=== PATIENT | male | born 1940 | race Caucasian/White ===

== ENCOUNTER 2019-01-01 11:08 | Inpatient (IN) | payer MEDICARE ==
[~2019-01-01 11:08] MED LIST: ISOVUE-370 76%-LOCM 1 ML ONE
[2019-01-01 11:46] LABS: #Eosinphils 0.1 thou/uL (0.0-0.7); #Monocytes 0.5 thou/uL (0.11-0.59); #Neutrophils 3.8 thou/uL (1.40-6.50); %Basophils 0.1 % (0.0-1.0); %Eosinophils 1.9 % (0.0-10.0); %Lymphocytes 18.4 % (21.0-51.0); %Monocytes 9.6 % (0.0-10.0); %Neutrophils 70.1 % (42.0-75.0); Mean Corpuscular HGB CONC 32.3 g/dL (32.0-36.0); Mean Corpuscular Volume 96.1 fL (78.0-98.0); Mean Platelet Volume 7.7 fL (7.4-10.4); Platelet Count 190 thou/uL (130-400); RBC Distribution Width 13.4 % (11.5-14.5); Red Blood Cell (RBC) Count 4.52 mill/uL (4.70-6.10); White Blood Cell (WBC) Count 5.4 thou/uL (4.8-10.8)
[2019-01-01 11:53] LABS: INR-International Normal Ratio 1.2; PTT 38.2 SEC (22.9-36.1)
--- NOTE | 2019-01-01 11:54 | CT ---
CT HEAD WITHOUT CONTRAST: Date: 01/01/19 Multiple axial tomograms obtained through the head without IV enhancement. INDICATION: Stroke protocol. Expressive aphasia and right arm pain. No comparison. FINDINGS: Ventricles have normal size and position. No evidence of intracranial mass or hemorrhage. No evidence of acute infarct identified. Sinuses and mastoids are clear. IMPRESSION: No acute process. Findings relayed to emergency physician at 1121 hours. CODE CR. POS: CRYSTAL
[2019-01-01 12:06] LABS: ALT (SGPT) 14 U/L (8-55); AST (SGOT) 22 U/L (5-34); Albumin 3.5 g/dL (3.4-4.8); Alkaline Phosphatase 59 U/L (40-150); Anion Gap 12 mmol/L (10-20); BUN (Urea Nitrogen) 24 mg/dL (8.4-25.7); Bilirubin, Total 0.7 mg/dL (0.2-1.2); Calc. Creatinine Clearance 0 mL/min (70-130); Calcium 8.6 mg/dL (7.8-10.44); Carbon Dioxide 19 mmol/L (23-31); Chloride 106 mmol/L (98-107); Estimated GFR-MDRD 89; Globulin 2.2 g/dL (2.4-3.5); Glucose 116 mg/dL (83-110); Potassium 4.4 mmol/L (3.5-5.1); Protein, Total 5.7 g/dL (5.8-8.1); Sodium 133 mmol/L (136-145)
--- NOTE | 2019-01-01 12:23 | CT ---
CT ANGIO HEAD: CT ANGIO NECK: CT HEAD WITH CONTRAST: HISTORY: Aphasia. Stroke alert. Right arm pain. TECHNIQUE: A CTA head and neck is performed in the axial plane. Three-dimensional reformatted images are submit giuseppe for interpretation. FINDINGS: HEAD CT WITH CONTRAST: Malacic change involving the right occipital parietal region. Otherwise, cor tical arias white matter differential appears to be preserved. There are chronic small vessel ischemi c changes of the white matter. No hydrocephalus. The calvarium is intact. Adequate aeration of the sinuses and mastoid air cells. Bilateral ocular lenses are appropriately located. Both globes are intact. Retrobulbar fat is prese rved. Symmetric attenuation of the optic nerve and ocular rectus muscle. Limited evaluation of the oral cavity due to dental amalgam artifact. Midline fatty [place] of the [place] is preserved. The epiglottis has a normal caliber. Pre-epiglottic fat is preserved. Symmetric attenuation of the parotid and submandibular glands. The sternocleidomastoid muscle is unr emarkable. No evidence of lymphadenopathy by size criteria. Cervical spine vertebral body height is maintained. There is no fracture. Multilevel degenerative c hange with loss of disk space height and osteophyte formation. Grossly, the central spinal canal is patent. There are varying degrees of foraminal stenosis secondary to degenerative change. Chronic change in the lung apices. The upper mediastinum is unremarkable. CT ANGIOGRAM: The visualized aorta has a normal caliber. There is atherosclerosis without evidence of dissection or aneurysm. RIGHT CAROTID: The right carotid artery origin has appropriate enhancement and luminal diameter. Th e common carotid artery, carotid bifurcation, and internal carotid artery have appropriate enhancemen t and luminal diameter. There is atherosclerosis with a combination of calcified and noncalcified pl aque in the right carotid bifurcation and proximal internal carotid artery. No significant stenosis based upon NASCET criteria. LEFT CAROTID: The left carotid artery origin has appropriate enhancement and luminal diameter. The left common carotid artery has appropriate enhancement and luminal diameter. There is calcified plaq ue with short-segment moderate (50%) stenosis of the proximal left internal carotid artery. Evaluati on is limited due to extensive calcified plaque and motion degradation. The mid to distal left inter nal carotid artery has appropriate enhancement and luminal diameter. Both subclavian arteries are patent. There is lack of contrast opacifying the right vertebral artery throughout its course in the neck with the exception of a small amount of contrast at the C2-C3 disk space level. The left vertebral artery appears to be patent throughout its course in the neck. CT ANGIOGRAM HEAD: There is calcified plaque in both cavernous carotid segments with probable short- segment moderate stenosis involving the distal right cavernous segment and paraclinoid segment. Ther e is mild narrowing of the left paraclinoid segment and distal cavernous segment. 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 Both A2 segments are patent and symmetric. The right A2 segment is supplied by a patent a nterior communicating artery. Bilateral M1 segments and proximal MCA branches are symmetric and butler nt. POSTERIOR CIRCULATION: There is some opacification of the right vertebral artery, likely due to sangeeta ateral flow. Both vertebral arteries supply a normal appearing basilar artery. The left and right P 1 segments have appropriate enhancement and luminal diameter. Both PICA origins appear to be grossly unremarkable. IMPRESSION: 1. Moderate short-segment stenosis of the proximal left internal carotid artery, based upon NASCET c marryeria. Evaluation is limited by motion and significant calcified disease. 2. Significant atherosclerotic disease involving both cavernous segments and paraclinoid segments, r ight greater than left. 3. No significant stenosis of the level of the [place]. 4. Lack of enhancement throughout the majority of the right vertebral artery, presumed to be chronic . The results of the study were discussed with Dr. Carlisle on 01/01/2019 at 11:38 a.m. LUIS EDUARDO VIEYRA POS: CRYSTAL
[2019-01-01 13:25] VITALS: BMI 19.8
--- NOTE | 2019-01-01 13:37 | RAD ---
CHEST 1 VIEW: Date: 01/01/19 HISTORY: Aphasia. Right arm pain. Right arm weakness. COMPARISON: None. FINDINGS: Marked cardiomegaly with mild bilateral vascular congestion and minimal increased linear and intersti tial markings. Slight costophrenic angle blunting. No confluent pneumonia. IMPRESSION: Marked cardiomegaly with mild vascular congestion, minimal increased interstitial markings, and possi staci small pleural effusions. Short-term follow-up recommended. POS: TPC
[2019-01-01] MEDS ORDERED: Communication Order-Pharmacy FS SCH (15:52)
[2019-01-01] MEDS ORDERED: niCARdipine HCl 25 MG in Sodium Chloride 0.9% 250 ML 240 ML IVPB PRN (15:52)
[2019-01-01] MEDS ORDERED: Labetalol HCl 100 MG/20 ML VIAL SLOW IVP PRN (15:52)
[2019-01-01] MEDS ORDERED: Ondansetron ODT 4 MG TAB PO PRN (15:52)
[2019-01-01] MEDS ORDERED: Ondansetron PF 4 MG/2 ML Vial IVP PRN (15:52)
[2019-01-01] MEDS ORDERED: Acetaminophen 500 MG TAB PO PRN (15:52)
--- NOTE | 2019-01-01 17:16 | CON ---
DATE OF CONSULTATION: 01/01/2019 REASON FOR CONSULTATION: Mandatory, the patient in CCU. This encompasses 50 minutes time, of that time, greater than 50% was spent with the patient and/or the patient unit in the hospital. 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 He was given tPA in the emergency room. His ability to speak is quite limited right now secondary to the expressive aphasia. He has recovered the rest of his deficits in his extremities. PAST MEDICAL HISTORY: 1. Previous hospitalization in 2017 for new onset congestive heart failure with a left bundle-branch block. He had an EF of 15% to 20% by an echocardiogram done during that hospitalization. Currently, he was advised that he go home with a LifeVest, but he did not do that. 2. Normal cardiac catheterization in 2017. 3. Hypertension. PAST SURGICAL HISTORY: See above. MEDICATIONS: Since last hospital discharge, he was prescribed; 1. Aspirin 325 mg daily. 2. Atorvastatin 40 mg daily. 3. Coreg 12.5 mg b.i.d. 4. Lisinopril 5 mg daily. 5. Nitroglycerin to take sublingually as needed. It is not completely clear what he is taking right now. SOCIAL HISTORY: Nonsmoker. Does not consume alcohol. 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 ALLERGIES: NONE. REVIEW OF SYSTEMS: Cannot be obtained secondary to his expressive aphasia. PHYSICAL EXAMINATION: VITAL SIGNS: Heart rate 88, blood pressure 144/91, O2 saturation 94%, and respiratory rate 30. GENERAL: He is awake and alert, in no distress. NEUROLOGIC: Pupils react. Moves all 4 extremities without difficulty. He cannot talk very clearly. Tongue protrudes midline. HEENT: Otherwise unremarkable. NECK: No JVD. CHEST: Clear to auscultation. CARDIAC: S1 and S2. Regular without murmur. ABDOMEN: Soft, nontender, and nondistended. EXTREMITIES: No clubbing, cyanosis, or edema. IMAGING DATA: Chest x-ray demonstrates cardiomegaly, which is quite profound. Brain CT initially demonstrated no acute process. The angiography of the brain demonstrated stenosis in the left internal carotid artery, it is characterized as moderate. LABORATORY DATA: White blood cell count 5.4, hematocrit 43.4, and platelet count 190. INR 1.2. Sodium 133, potassium 4.4, BUN 24, creatinine 0.8, and glucose 116. ASSESSMENT: 1. Cerebrovascular accident with speech deficit. 2. History of hypertension. PLAN: The patient was given tPA. He will be evaluated by the Neurology Service and the Hospitalist Service. I have reviewed his case and agree with current plan. Pulmonary will follow peripherally until the patient is moved out of the CCU. Job ID: [id number]
--- NOTE | 2019-01-01 18:50 | HP ---
PRIMARY CARE PROVIDER: [facility]. CHIEF COMPLAINT: Facial droop and unable to speak. HISTORY OF PRESENT ILLNESS: This is a 78-year-old male, who presents to [facility] with sudden onset of right facial droop and difficulty with speech. History was obtained after discussions with the patient as well as review of electronic medical record as the patient exhibits expressive aphasia. The patient's symptoms apparently began approximately 9:30 a.m. on 01/01/2019. At which point, the patient called 911 using his own cellphone. The patient noted difficulty using his right upper extremity as it felt paralyzed. 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 The patient had difficulty forming words and noted facial droop and right-sided weakness. The patient states he had a prior history of TIA like symptoms without residual deficit. The patient does admit to taking aspirin regularly for his heart and denied any new medication exposure or toxic ingestions. The patient denies any specific headache, visual disturbance, recent fall, or head injury. Remaining history is obtained after review of electronic medical record due to expressive aphasia and dysarthria. In the emergency room, the patient underwent evaluation including general stroke protocol meeting criteria for tPA administration. The patient received tPA approximately 11:40 a.m. The patient exhibiting improvement and speech forming some words as well as increased movement of his right upper extremity and near resolution of right facial droop. PAST MEDICAL HISTORY: 1. TIA. 2. Coronary artery disease. 3. Hypertension. PAST SURGICAL HISTORY: Status post right knee aspiration. CURRENT MEDICATIONS: Unavailable. The patient unable to provide a list. ALLERGIES: NO KNOWN DRUG ALLERGIES. FAMILY HISTORY: Positive for hypertension. SOCIAL HISTORY: The patient resides in [place], [place]. 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 Denies alcohol, tobacco, or illicit drug use. REVIEW OF SYSTEMS: Unobtainable due to the patient's dysarthria and expressive aphasia. PHYSICAL EXAMINATION: VITAL SIGNS: On admission, blood pressure 140/91, pulse 83, respiratory rate 18, temperature 97.6 degrees Fahrenheit, and O2 saturation 97% on room air. GENERAL APPEARANCE: This is a 78-year-old male, alert, responds in 1 to 2 words with expressive aphasia and dysarthria. HEENT: Pupils are equal, round, reactive to light and accommodation. Extraocular muscles are intact. No scleral icterus. No conjunctival injection. Nares patent. OP is clear. NECK: Supple. No cervical adenopathy. No thyromegaly. No carotid bruits. No JVD appreciated. Cervical spine with full active and passive range of motion. No meningeal signs noted. CHEST: Lungs are clear to auscultation bilaterally. CARDIOVASCULAR: S1 and S2 with 1 to 2/6 systolic ejection murmur in the left axillary region. ABDOMEN: Rounded, soft, nontender, and nondistended. Bowel sounds are positive in all 4 quadrants. There is no hepatosplenomegaly. No abdominal bruits. No rebound or guarding appreciated. EXTREMITIES: Warm and dry with fair turgor. No clubbing, cyanosis, or asymmetric edema appreciated. Pulses palpable distally at the dorsalis pedis, posterior tibial, and popliteal arteries bilaterally. Capillary refill less than 2 seconds. NEUROLOGIC: Mild right facial asymmetry. Expressive aphasia/dysphagia with dysarthria. Right upper extremity weakness on pie filler strength compared to the left upper extremity. Right-hand dominant. Moves all extremities on command. Not observed ambulatory during this exam. PERTINENT LABORATORY DATA AND X-RAY FINDINGS: Sodium 133, potassium 4.4, chloride 106, CO2 of 19, BUN 24, creatinine 0.84, estimated GFR of 89, calcium 8.6. LFTs within normal limits. Troponin I negative x1. CBC within normal limits. PT 15.0, INR 1.2, and PTT 38.2. CT of the brain without contrast dated 01/01/2019, showed no acute intracranial process. CT angiogram of the [place] and head and neck dated 01/01/2019, showed left internal carotid artery calcifications. No significant stenosis of the [place]. Chronic right vertebral artery stenosis. Portable chest x-ray dated 01/01/2019, showed cardiomegaly with mild vascular prominence. EKG dated 01/01/2019, by my interpretation shows sinus mechanism with heart rates in the 80s. Left bundle-branch block pattern noted. Attenuated R-waves noted in the precordial leads. Left axis deviation. ASSESSMENT AND PLAN: 1. Acute ischemic cerebrovascular accident. The patient will be admitted to the Critical Care Unit. Status post tPA in the emergency department. Improvement in dysarthria/aphasia and right upper extremity weakness. We will continue status post tPA protocol. Hold aspirin x24 hours. Check 2D transthoracic echocardiogram in the a.m. Check MRI imaging of the brain. Continue general stroke protocol. 2. Expressive aphasia. Secondarily to #1. We will continue Speech Therapy evaluation and general stroke protocol. Confirm home regimen including aspirin. The patient may benefit from transition to Plavix or Aggrenox. 3. Hyponatremia. Encourage increased oral intake and repeat sodium level in the a.m. 4. Prophylaxis. SCDs while in bed. Pepcid 20 mg p.o. b.i.d. Speech, Occupational and Physical Therapy evaluation. 5. Code status is full. Surrogate medical decision maker is Carole Carney. Job ID: [id number]
[2019-01-01] MEDS: Famotidine 20 MG TAB PO SCH (20:24)
[2019-01-01] MEDS: Atorvastatin Calcium 40 MG TAB PO SCH (20:24)
[2019-01-02] MEDS: Famotidine 20 MG TAB PO SCH ×2 (07:26→20:54)
--- NOTE | 2019-01-02 08:34 | PRG ---
DATE OF SERVICE: 01/02/2019 SUBJECTIVE: The patient has regained his speech since yesterday. The only deficit he has is some sensation problems in his fingertips on the right. OBJECTIVE: VITAL SIGNS: On exam, temperature is 97.5, pulse 69, blood pressure 131/76, and O2 sat 100%. HEENT: Unremarkable. NECK: No JVD. CHEST: Clear. CARDIAC: S1 and S2, regular. ABDOMEN: Soft. EXTREMITIES: No edema. LABORATORY DATA: No labs were obtained today. ASSESSMENT: Status post stroke, requiring tPA. He has recovered his speech deficit. PLAN: He can transfer out to the stroke floor. No further Pulmonary recommendations. We will sign off. Job ID: [id number]
--- NOTE | 2019-01-02 09:33 | MRI ---
MRI BRAIN WITHOUT CONTRAST: HISTORY: A 78-year-old male with a CVA. CORRELATION: CT scan from the previous day. FINDINGS: There is a small area of restricted diffusion in the left MCA territory. The ventricular size is johanny ropriate, and the basilar cisterns are patent. There is gliosis in the right posterior parietal lobe . A few foci of T2 prolongation in the periventricular white matter are consistent with chronic smal l vessel ischemic disease. No midline shift or abnormal extraaxial fluid collections are seen. Ther e is decreased signal on the gradient echo sequences within a portion of the restricted diffusion, co nsistent with hemorrhagic products. IMPRESSION: Small, hemorrhagic, acute left middle cerebral artery infarction. CODE T
--- NOTE | 2019-01-02 09:37 | CT ---
CT BRAIN: 01/02/2019 COMPARISON: 01/01/2019 FINDINGS: Noncontrast enhanced CT images of the brain demonstrate a small area of acute infarction, which has d eveloped in the left posterior frontal lobe. This area was not seen on the previous exam and demonst rates an area of ill-defined hypodensity. There is a tiny area of developed hyperdensity seen, on ax ial image #15, along the medial aspect of this area of infarction. This may represent a tiny area of secondary hemorrhage. Small, old area of gliosis, likely due to incomplete infarction, seen in the left posterior parietal lobe and right lateral parietal regions. IMPRESSION: Developed left middle cerebral artery area of infarction with a subtle area of possible secondary hem orrhage POS: CRYSTAL
[2019-01-02 12:35] LABS: Hemoglobin 14.5 g/dL (14.0-18.0); Mean Corpuscular HGB CONC 32.1 g/dL (32.0-36.0); Mean Corpuscular Hemoglobin 30.7 pg (27.0-31.0); Mean Corpuscular Volume 95.6 fL (78.0-98.0); Mean Platelet Volume 7.7 fL (7.4-10.4); Platelet Count 194 thou/uL (130-400); RBC Distribution Width 13.3 % (11.5-14.5); Red Blood Cell (RBC) Count 4.73 mill/uL (4.70-6.10); White Blood Cell (WBC) Count 5.5 thou/uL (4.8-10.8)
[2019-01-02 12:52] LABS: Anion Gap 14 mmol/L (10-20); BUN (Urea Nitrogen) 23 mg/dL (8.4-25.7); Calc. Creatinine Clearance 70 mL/min (70-130); Calcium 9.1 mg/dL (7.8-10.44); Carbon Dioxide 21 mmol/L (23-31); Cardiac Risk 3.7 (Less than 4.5); Chloride 107 mmol/L (98-107); Cholesterol 157 mg/dl (< 200 Desired); Estimated GFR-MDRD 90; Glucose 114 mg/dL (83-110); HDL Cholesterol 43 mg/dL (>60 Neg Risk); LDL Cholesterol, Calculated 103 mg/dL; Potassium 4.5 mmol/L (3.5-5.1); Sodium 137 mmol/L (136-145); Triglycerides 53 mg/dL (Less than 150)
[2019-01-02 13:14] LABS: MDiff Complete? YES; Neutrophil 65 % (42-75)
[2019-01-02 13:15] LABS: Band 5 % (5-11); Eosinophils 1 % (0-10); Lymphocytes 19 % (21-51); Monocytes 5 % (0-10); RBC Morphology Normal; Reactive Lymphocytes 5 % (0-10)
--- NOTE | 2019-01-02 17:56 | PRG ---
DATE OF SERVICE: 01/02/2019 SUBJECTIVE: The patient reports he is doing substantially better and feels like his symptoms are largely resolved other than he has just a little bit of decreased sensation at his fingertips on his right hand; however, he has normal fine motor skills with that hand. OBJECTIVE: VITAL SIGNS: Temperature 96.8, pulse 78, BP 113/72, O2 saturation 96% on room air. GENERAL APPEARANCE: Age-appropriate male, in no distress. Awake, alert, oriented, pleasant, and cooperative. HEART: Regular rate and rhythm without murmurs, gallops, or rubs. LUNGS: Clear to auscultation bilaterally with good chest wall expansion and air exchange. ABDOMEN: Soft, nontender, and nondistended. Positive bowel sounds. No masses. No organomegaly. EXTREMITIES: Warm and dry with no edema. NEUROLOGICALLY: The patient has generally normal strength in bilateral upper and lower extremities with no significant hypoesthesia. DIAGNOSTIC DATA: MRI shows small hemorrhagic acute left middle MCA infarction with subtle area of possible infarction seen on CT, not on MRI. LABORATORY DATA: White count 5.5, hemoglobin 14.5, platelets 194. Sodium 137, potassium 4.5, chloride 107, CO2 is 21, BUN 23, creatinine 0.83, glucose 114, calcium 9.1, total cholesterol 157, HDL 43, LDL 103, triglycerides 53. IMPRESSION AND PLAN: 1. Acute cerebrovascular accident with symptoms largely improved. Can go to the Stroke unit at any time. Continue with physical therapy. He has a Neurology consult pending. He is on statin and aspirin. 2. Hyponatremia, improved. 3. History of hypertension. Continue home regimen. Job ID: [id number] [facility]
[2019-01-02] MEDS: Atorvastatin Calcium 40 MG TAB PO SCH (20:54)
--- NOTE | 2019-01-02 22:04 | CON ---
DATE OF CONSULTATION: 01/02/2019 CONSULTING PHYSICIAN: Hospitalist Services. IMPRESSION: 1. Resolving left middle cerebral artery stroke, possibly cardioembolic in origin versus thromboembolic. 2. Ejection fraction of 10% to 15%. 3. Aspirin failure. PLAN: I would suggest anticoagulation if Cardiology agrees. HISTORY OF PRESENT ILLNESS: Mr. Lutz is a 78-year-old man who presented with right-sided weakness and some speech difficulties. Initial CT scan was negative for bleed. He was within the window for tPA. He received the medication last night, had followup MRI of the brain today which shows a medium size region in the central parietal area of hypointensity with some punctate hemorrhage. There is no mass effect to it. His symptoms of right-sided weakness have significantly improved. His echocardiogram preliminarily shows a markedly suppressed ejection fraction. His CTA showed a 50% high internal carotid stenosis as well as some patchy narrowing further upstream. He denies any prior history of stroke. He does not smoke. He has not had any recent cardiology followup. PAST MEDICAL HISTORY: Coronary artery disease, hypertension. ALLERGIES: NONE. SOCIAL HISTORY: No tobacco or alcohol. MEDICATIONS: Medication list was reviewed. REVIEW OF SYSTEMS: A 10-system review of systems is otherwise unremarkable. PHYSICAL EXAMINATION: GENERAL: He is a well-nourished elderly man, in no distress. VITAL SIGNS: Blood pressure 113/72, pulse 80, respirations 19, saturations 95%. HEENT: Pupils are equal and reactive. Conjunctivae are clear. Oropharynx is clear. NECK: Supple, no lymphadenopathy. EXTREMITIES: No cyanosis, clubbing, or edema. NEUROLOGIC: He is alert and cooperative. His speech is fluent and clear. Cranial nerve exam did not show any asymmetries. Motor exam shows good special service representative strength bilaterally. Fine motor control is minimally impaired on the right. He has good antigravity strength in the right leg. Sensation is intact. Plantar response is upgoing on the right and downgoing on the left. Gait is not tested at this time. No abnormal movements are seen. LABORATORY DATA: EKG shows normal sinus rhythm. SUMMARY: This is an elderly man with acute stroke with significantly depressed ejection fraction as well as some upstream stenosis in the internal carotid artery. I would suggest anticoagulation. Cardiology input would be beneficial to see if anything can be done to improve his EF. Job ID: [id number]
[2019-01-03] MEDS: Aspirin 325 mg Enteric Coated Tablet PO SCH (09:23)
[2019-01-03] MEDS: Famotidine 20 MG TAB PO SCH ×2 (09:23→21:56)
[2019-01-03] MEDS: Atorvastatin Calcium 40 MG TAB PO SCH (21:56)
[2019-01-03] MEDS: Carvedilol 25 MG TAB PO SCH (21:56)
--- NOTE | 2019-01-04 00:35 | CON ---
DATE OF CONSULTATION: 01/03/2019 REASON FOR CONSULTATION: Congestive heart failure, systolic, chronic, recent stroke. HISTORY OF PRESENT ILLNESS: Mr. Lutz is a 78-year-old gentleman with history of nonischemic cardiomyopathy. The patient presented to the emergency room with acute ischemic stroke as outlined in the chart. CT scan was negative for bleeding. He did receive tPA. Followup MRI of the brain showed medium-sized region in the central parietal area, hypointensity with some punctate hemorrhages, hemorrhages improved. He was found to have nonobstructive carotid arterial disease. PAST MEDICAL HISTORY: The patient does have a history of congestive heart failure with nonischemic cardiomyopathy. He was hospitalized here in 2017. Unfortunately, they have made two different charts with two different medical record numbers. Therefore, these records are not showing up in the current electronic chart, but he underwent cardiac catheterization and was found to have nonobstructive coronary disease best treated medically. Ejection fraction was 20%, nonobstructive coronary disease. He was discharged home on PATSY inhibitors and beta-blockers. Unfortunately, he did not come back for any followup. The patient does not know what medicines he was taking at home. It is listed to take lisinopril and carvedilol, but he is not really clear he has been taking these. SOCIAL HISTORY: The patient says he lives in a very low-fixed income. REVIEW OF SYSTEMS: CONSTITUTIONAL: No significant weight gain or loss. VISION: No changes. HEARING: No changes. PULMONARY: No cough or wheezing. GASTROINTESTINAL: No nausea, vomiting, or diarrhea. SKIN: No rashes. NEUROLOGIC: No unilateral weakness or numbness. PSYCHIATRIC: No unusual depression or anxiety. PHYSICAL EXAMINATION: GENERAL: This is a pleasant, somewhat disheveled-appearing 78-year-old man, in no distress. VITAL SIGNS: His blood pressure is 122/75 and pulse 70. HEENT: Eyes, sclerae are nonicteric. Mouth, mucous membranes are moist. NECK: Supple. No lymphadenopathy. LUNGS: Clear. No wheezing. CARDIAC: Normal S1, normal S2. ABDOMEN: Soft and nontender. EXTREMITIES: No clubbing or cyanosis. No edema. SKIN: Warm and dry. DIAGNOSTIC DATA: Echocardiogram shows severely depressed left ventricular function with an ejection fraction of 15% to 20%. ASSESSMENT: 1. Recent ischemic stroke, treated successfully with tPA, strongly suspect embolic event, most likely from atrial fibrillation. This occurred on aspirin apparently. 2. Nonischemic cardiomyopathy, severe. 3. History of noncompliance. 4. Left bundle-branch block. PLAN: Consideration for biventricular pacemaker, defibrillator will be given. We will discuss with Dr. Chowdhury. They could be monitored then subsequently to see if he is having atrial fibrillation, but I do not think there will be a high chance that he is. Unfortunately, may be difficult to get him on novel oral anticoagulants as he says funds are very limited and he has not been good with followup either. We will have to discuss this to go ahead, also would be a poor candidate for Coumadin in view of noncompliance. Job ID: [id number]
[2019-01-04] MEDS: Carvedilol 25 MG TAB PO SCH (08:17)
[2019-01-04] MEDS: Aspirin 325 mg Enteric Coated Tablet PO SCH (08:19)
[2019-01-04] MEDS: Famotidine 20 MG TAB PO SCH (08:19)
[2019-01-04] MEDS ORDERED: Furosemide 40 MG TAB PO SCH (09:00)
[2019-01-04] MEDS ORDERED: Atorvastatin Calcium 40 MG TAB PO SCH (09:00)
[2019-01-04] MEDS ORDERED: Lisinopril 5 MG TAB PO SCH (09:00)
--- NOTE | 2019-01-04 09:35 | PRG ---
DATE OF SERVICE: 01/04/2019 SUBJECTIVE: The patient's primary concern is that he has chronic back pain. He is having a difficult time getting comfortable. He is not able to really stay in the bed and spends most of his time sitting up. He has specifically stated he did not want any medication for the back pain. OBJECTIVE: VITAL SIGNS: Temperature 98, pulse 73, respirations 18, O2 saturation 99% on room air, BP is 122/75. GENERAL APPEARANCE: Age-appropriate male, in no distress. Then sitting up in chair, pleasant, conversant. HEART: Regular without murmurs. LUNGS: Slightly diminished, but clear bilaterally. ABDOMEN: Soft, nontender, and nondistended. EXTREMITIES: No cyanosis, clubbing, or edema. LABORATORY DATA: Echocardiogram results showed an EF of 15% to 20% and severe dilatation of the left atrium, moderate to severe MR, mild to moderate AR, moderate tricuspid regurgitation, and severely elevated pulmonary artery pressures. IMPRESSION AND PLAN: 1. Acute cerebrovascular accident status post tPA with substantial resolution of his symptoms. He was seen by Neurology, they recommended anticoagulation given his cardiomyopathy. Cardiology consult has been placed. The patient reports that he had a heart attack few years ago, but he is not aware of having significant cardiomyopathy or congestive heart failure in our discussion. He does report that he has had no peripheral edema, but he has had significant dyspnea on exertion, which he related to lung problems rather than heart problems. 2. Cardiomyopathy. Cardiology consult pending. May need anticoagulation. It appears as though he was on a good regimen as an outpatient with Coreg, PATSY inhibitor, and diuretic. We will make sure he is resumed on his usual home medications. 3. Hyponatremia, improved. 4. Chronic back pain. The patient has requested no medication for that. Subsequent to my visit, discussed case with Dr. Queen. The patient certainly would likely benefit from a defibrillator given the chronicity of his cardiomyopathy. He will talk to Dr. Chowdhury. Job ID: [id number]
--- NOTE | 2019-01-04 10:46 | PRG ---
DATE OF SERVICE: 01/04/2019 SUBJECTIVE: Mr. Lutz had a consultation with Dr. Chowdhury yesterday. Mr. Lutz states he was actually not taking the medicines for congestive heart failure. He is only taking furosemide and aspirin. Therefore, he is not a candidate to proceed with defibrillator implantation presently. The patient is to be on the appropriate medicines for 3 months prior to consideration. LifeVest was recommended. The patient refuses, states "if I , I ." The patient has a history of noncompliance with medications unfortunately. OBJECTIVE: VITAL SIGNS: Today's blood pressure 121/72, pulse 66 and regular. LUNGS: Clear. CARDIAC: Normal S1, normal S2. ASSESSMENT: 1. Severe cardiomyopathy. 2. Nonsustained ventricular tachycardia. 3. Left bundle branch block. 4. Stroke, on anti-platelet drugs. I suspect he may have had a cardioembolic event. I believe we have not proven that. PLAN: 1. He is on carvedilol. 2. Lisinopril. 3. Furosemide. 4. He is asked to see us in the office in 2 weeks. The patient has no medication insurance. He says he can "handle the medicine cause." However, the anticoagulant drugs are extremely expensive. It is not clear if he would actually fill these prescriptions. At this time, we have also not proven that he has any type of cardioembolic event. We have asked him to come to see us in the office in couple of weeks. If he is doing well and he has filled the medicines and he knows his medicines, we could consider adding apixaban 5 mg twice a day, but at the present time, I do not know if it is safe to give him anticoagulants as he is very noncompliant with medicine. Prognosis long-term is guarded to poor. He would improve if he got biventricular pacing with defibrillator, but I suspect. The main question is whether he will take his medicines to keep followups. As mentioned, he refuses LifeVest. Also, a LifeVest would monitor to see if he has any atrial arrhythmias, but refuses that. Job ID: [id number]
[2019-01-04 11:25] VITALS: BP 106/62; TEMP 97.4
--- NOTE | 2019-01-05 02:17 | CON ---
DATE OF CONSULTATION: 01/03/2019 HISTORY OF PRESENT ILLNESS: I am seeing Mr. 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 His problems are: 1. Chronic systolic congestive heart failure with nonischemic cardiomyopathy. a. Reduced LVEF of 57% on echo on 01/02/2019 with severe left atrial enlargement , moderate to severe MR, [id number] aortic regurgitation, moderate tricuspid regurgitation, pulmonary hypertension. b. Reduced LVEF at 20% with left heart catheterization showing nonobstructive coronary artery disease on heart catheterization in 2017 followup. 2. Left bundle branch block. 3. Subacute ischemic stroke. 4. Risk factors including hypertension and hyperlipidemia. ALLERGIES: NONE. MEDICATIONS: At home include: 1. Aspirin. 2. Lipitor. 3. Coreg. 4. Lisinopril. 5. Nitroglycerin p.r.n. SUBJECTIVE: Mr. Lutz is here following an acute episode of ischemic stroke with right upper extremity paresis, facial droop, difficult speech. He has similar history in the past. He was evaluated and the tPA was given, his symptoms promptly resolved. The patient was seen in this regard. His repeat cardiac evaluation revealed continued severely reduced LV function. I was consulted by Dr. Queen for future EP management. The patient is doing fair. Denies PND, orthopnea, or lower extremity edema. He has NYHA class 2 functional status according to him. Medication compliance is difficult to elicit. He is somewhat a poor historian. I think fluid overload. There are no angina-like symptoms. No fever, chills, or cough. He does not pass out. Rest of 12-point system otherwise unremarkable. OBJECTIVE DATA: VITAL SIGNS: Blood pressure is 111/68, heart rate 74, respirations 20. The patient is afebrile. PHYSICAL EXAMINATION: GENERAL: He is alert and oriented man, in no apparent distress. NECK: Supple. Jugular veins not distended. CHEST: Coarse without crackles. HEART: Sounds are regular rate and rhythm. No murmur or gallop. ABDOMEN: Benign. Bowel sounds positive. EXTREMITIES: Lower extremities without edema, clubbing, or cyanosis. Pulses are adequate. NEUROLOGIC: The patient is nonfocal. MUSCULOSKELETAL: No joint swelling or deformity. SKIN: Without rash. DATABASE: EKG is reviewed revealing sinus rhythm, marked left bundle branch block with wide QRS. Telemetry strips reveal short nonsustained ventricular tachycardia. LABORATORY DATA: White cell count 5.5, hemaglobin 14. 5, platelet count is 194. Sodium 137, potassium 4.5, BUN is 23, creatinine 0.83. Troponin levels are 0.02. The CAT scan reviewed, shows no acute process initially, but the [place] angio reveals short-segment stenosis in the proximal left internal carotid artery. ASSESSMENT AND PLAN: Mr. Lutz is a pleasant 78-year-old man with history of nonischemic cardiomyopathy, somewhat limited compliance with followup after 2017 , the initial establishment of his disease process. He had limited medication cover and he may have been poorly compliant with his heart failure medications. Now, he is returning with continued severely reduced LV function in episode of stroke, which appears to be ischemic and responded to tPA, likely related to cardiogenic emboli. I discussed the findings with him. He has recent decompensated heart failure, but severely reduced LV function and wide left bundle branch block. LV dyssynchrony is very likely, he likely could benefit from Bi-V pacing. Prophylaxis of arrhythmogenic sudden cardiac is also reasonable. If we able to place him on heart failure therapy, this could be considered in 3 months. LifeVest therapy is a consideration. The patient declines at this point. Acute cerebrovascular accident, again thromboprophylaxis is a potential possibility. With aspirin, possibly the Plavix, he might need to be monitored for recurrence of atrial fibrillation, in which case he will require oral anticoagulant as well. Once ICD implanted, he will be further monitored with LifeVest in the future. I discussed these issues with him. At this point, the patient is eager to leave the hospital and not interested in staying for further evaluation. We will be happy to follow him as an outpatient as well. Job ID: [id number] [facility]
--- NOTE | 2019-01-05 16:38 | EKG ---
Test Reason : ST ELEVATION Blood Pressure : / mmHG Vent. Rate : 081 BPM Atrial Rate : 081 BPM P-R Int : 170 ms QRS Dur : 204 ms QT Int : 494 ms P-R-T Axes : 069 -51 076 degrees QTc Int : 573 ms Normal sinus rhythm Possible Left atrial enlargement Left axis deviation Left Bundle Branch Block Abnormal ECG When compared with ECG of 01-JAN-2019 11:37, (Unconfirmed) No significant change was found Confirmed by DR. Reyna WHITESIDE ([id number]) on 01/05/2019 4:38:02 PM Referred By: Confirmed By:DR. Reyna WHITESIDE
== END 2019-01-04 12:17 | disposition home or self-care (01) | DRG 62 ==
LOC: ERS 11:08 → CCU 12:26 → 2SE 01-02 17:26
PROVIDERS: ADMIT Family Medicine; ATTEND Family Medicine
DX: I63.412 Cerebral infarction due to embolism of left middle cerebral artery (principal); E87.1 Hypo-osmolality and hyponatremia; I50.22 Chronic systolic (congestive) heart failure; I42.8 Other cardiomyopathies; R47.1 Dysarthria and anarthria; R29.810 Facial weakness; I11.0 Hypertensive heart disease with heart failure; E78.5 Hyperlipidemia, unspecified; I25.10 Atherosclerotic heart disease of native coronary artery without angina pectoris; R47.01 Aphasia; I48.91 Unspecified atrial fibrillation; M54.9 Dorsalgia, unspecified; Z79.899 Other long term (current) drug therapy; Z91.14 Patient's other noncompliance with medication regimen; Z79.82 Long term (current) use of aspirin
CPT/HCPCS: 36415; 36416; 70450; 70496; 70498; 70551; 71045; 80048; 80053; 80061; 84484; 85007; 85025; 85027; 85610; 85730; 93005; 93010; 93306; 94640; J2997; J7620; Q9966

== ENCOUNTER 2021-02-26 10:37 | Inpatient (IN) | payer MEDICARE ==
[2021-02-26] MEDS ORDERED: HYDROcodone/Acetaminophen 5/325 mg Tablet ONE (11:30)
[2021-02-26 11:36] LABS: #Monocytes 0.5 thou/uL (0.11-0.59); #Neutrophils 3.1 thou/uL (1.40-6.50); %Basophils 0.9 % (0.0-1.0); %Eosinophils 0.9 % (0.0-10.0); %Lymphocytes 20.9 % (21.0-51.0); %Monocytes 9.8 % (0.0-10.0); %Neutrophils 67.5 % (42.0-75.0); Hemoglobin 11.3 g/dL (14.0-18.0); Mean Corpuscular HGB CONC 32.8 g/dL (32.0-36.0); Mean Corpuscular Hemoglobin 32.8 pg (27.0-31.0); Platelet Count 225 thou/uL (130-400); RBC Distribution Width 15.4 % (11.5-14.5); Red Blood Cell (RBC) Count 3.43 mill/uL (4.70-6.10); White Blood Cell (WBC) Count 4.6 thou/uL (4.8-10.8)
[2021-02-26] MEDS ORDERED: Vancomycin 1 GM/200 ML BAG ONE (11:37)
[2021-02-26] MEDS ORDERED: Cefepime 2 GM VIAL ONE (11:37)
[2021-02-26 12:05] LABS: ALT (SGPT) 26 U/L (8-55); AST (SGOT) 69 U/L (5-34); Albumin 3.9 g/dL (3.4-4.8); Alkaline Phosphatase 66 U/L (40-110); Anion Gap 15 mmol/L (10-20); BUN (Urea Nitrogen) 42 mg/dL (8.4-25.7); Bilirubin, Total 1.1 mg/dL (0.2-1.2); Calc. Creatinine Clearance 0 mL/min (70-130); Calcium 9.4 mg/dL (7.8-10.44); Carbon Dioxide 20 mmol/L (23-31); Chloride 102 mmol/L (98-107); Globulin 2.8 g/dL (2.4-3.5); Glucose 91 mg/dL (83-110); Potassium 4.7 mmol/L (3.5-5.1); Protein, Total 6.7 g/dL (5.8-8.1); Sodium 132 mmol/L (136-145)
[2021-02-26] MEDS ORDERED: Guaifenesin DM 100-10/5 ML UDCUP PO PRN (13:53)
[2021-02-26] MEDS ORDERED: Ondansetron PF 4 MG/2 ML Vial IVP PRN (13:53)
[2021-02-26 16:48] VITALS: BMI 21.6
[2021-02-26] MEDS: Famotidine 20 MG TAB PO SCH (19:55)
[2021-02-26 22:04] LABS: SARS-CoV-2 PCR by NAA Not Detected (NotDetected)
[2021-02-26] MEDS: Cefepime 1 GM in Sodium Chloride 0.9% 100 ML IVPB SCH (23:36)
[2021-02-27 05:20] LABS: Band 8 % (5-11); Eosinophils 2 % (0-10); Hypochromia SLIGHT = 6-15 cells (100X) (0-5/hpf); Lymphocytes 22 % (21-51); MDiff Complete? YES; Mean Corpuscular HGB CONC 33.5 g/dL (32.0-36.0); Mean Corpuscular Hemoglobin 33.4 pg (27.0-31.0); Mean Corpuscular Volume 99.6 fL (78.0-98.0); Mean Platelet Volume 7.1 fL (7.4-10.4); Monocytes 8 % (0-10); Neutrophil 60 % (42-75); Platelet Count 200 thou/uL (130-400); Platelet Morphology Comment Appears Adequate; RBC Distribution Width 15.4 % (11.5-14.5); Red Blood Cell (RBC) Count 3.29 mill/uL (4.70-6.10); White Blood Cell (WBC) Count 3.5 thou/uL (4.8-10.8)
[2021-02-27 05:28] LABS: ALT (SGPT) 27 U/L (8-55); AST (SGOT) 62 U/L (5-34); Albumin 3.7 g/dL (3.4-4.8); Alkaline Phosphatase 62 U/L (40-110); Anion Gap 15 mmol/L (10-20); BUN (Urea Nitrogen) 38 mg/dL (8.4-25.7); Bilirubin, Total 1.2 mg/dL (0.2-1.2); Calc. Creatinine Clearance 38 mL/min (70-130); Calcium 8.8 mg/dL (7.8-10.44); Carbon Dioxide 20 mmol/L (23-31); Chloride 104 mmol/L (98-107); Globulin 2.9 g/dL (2.4-3.5); Glucose 91 mg/dL (83-110); Potassium 4.6 mmol/L (3.5-5.1); Protein, Total 6.6 g/dL (5.8-8.1); Sodium 134 mmol/L (136-145)
[2021-02-27] MEDS: Enoxaparin Sodium 40 MG/0.4 ML SYRINGE SC SCH (08:08)
[2021-02-27] MEDS: Famotidine 20 MG TAB PO SCH (08:09)
[2021-02-27] MEDS: Acetaminophen 325 MG TAB PO PRN ×3 (08:09→22:05)
[2021-02-27] MEDS: Vancomycin 1 GM in Premix Bag 1 BAG IVPB SCH (11:11)
[2021-02-27] MEDS: Cefepime 1 GM in Sodium Chloride 0.9% 100 ML IVPB SCH ×2 (13:32→23:24)
[2021-02-28] MEDS: Acetaminophen 325 MG TAB PO PRN ×2 (04:06→20:59)
[2021-02-28] MEDS: Famotidine 20 MG TAB PO SCH (10:22)
[2021-02-28] MEDS: Vancomycin 1 GM in Premix Bag 1 BAG IVPB SCH ×2 (10:22→12:46)
[2021-02-28] MEDS: Enoxaparin Sodium 40 MG/0.4 ML SYRINGE SC SCH ×2 (10:23→10:25)
[2021-02-28 11:47] LABS: Vancomycin, Trough 8.4 ug/mL
[2021-02-28] MEDS: HYDROcodone/Acetaminophen 5/325 mg Tablet PO PRN (12:38)
[2021-02-28] MEDS: Cefepime 1 GM in Sodium Chloride 0.9% 100 ML IVPB SCH (12:39)
[2021-02-28] MEDS: VANCOMYCIN 1.25 GM/250 ML BAG 1.25 GM in Premix Bag 1 BAG IVPB SCH (13:58)
[2021-02-28] MEDS ORDERED: Sodium Chloride 0.9% 1,000 ML IV SCH (14:15)
[2021-03-01] MEDS: Cefepime 1 GM in Sodium Chloride 0.9% 100 ML IVPB SCH ×3 (00:02→23:55)
[2021-03-01] MEDS: Famotidine 20 MG TAB PO SCH (08:18)
[2021-03-01] MEDS: Enoxaparin Sodium 40 MG/0.4 ML SYRINGE SC SCH (08:18)
[2021-03-01] MEDS: VANCOMYCIN 1.25 GM/250 ML BAG 1.25 GM in Premix Bag 1 BAG IVPB SCH (13:13)
[2021-03-01] MEDS: HYDROcodone/Acetaminophen 5/325 mg Tablet PO PRN (21:42)
[2021-03-02 07:14] LABS: #Basophils 0.1 thou/uL (0.0-0.2); #Lymphocytes 1.1 thou/uL (1.20-3.40); #Monocytes 0.7 thou/uL (0.11-0.59); %Basophils 1.4 % (0.0-1.0); %Eosinophils 0.8 % (0.0-10.0); %Lymphocytes 22.8 % (21.0-51.0); %Monocytes 13.4 % (0.0-10.0); %Neutrophils 61.6 % (42.0-75.0); Hemoglobin 11.6 g/dL (14.0-18.0); Mean Corpuscular Hemoglobin 33.2 pg (27.0-31.0); Mean Platelet Volume 6.6 fL (7.4-10.4); Platelet Count 212 thou/uL (130-400); RBC Distribution Width 15.6 % (11.5-14.5); Red Blood Cell (RBC) Count 3.48 mill/uL (4.70-6.10); White Blood Cell (WBC) Count 4.9 thou/uL (4.8-10.8)
[2021-03-02 07:34] LABS: Anion Gap 12 mmol/L (10-20); BUN (Urea Nitrogen) 27 mg/dL (8.4-25.7); Calc. Creatinine Clearance 40 mL/min (70-130); Calcium 8.7 mg/dL (7.8-10.44); Carbon Dioxide 22 mmol/L (23-31); Chloride 102 mmol/L (98-107); Glucose 87 mg/dL (83-110); Potassium 4.9 mmol/L (3.5-5.1); Sodium 131 mmol/L (136-145)
[2021-03-02] MEDS: Famotidine 20 MG TAB PO SCH (10:19)
[2021-03-02] MEDS: Enoxaparin Sodium 40 MG/0.4 ML SYRINGE SC SCH (10:20)
[2021-03-02] MEDS: Cefepime 1 GM in Sodium Chloride 0.9% 100 ML IVPB SCH (12:53)
[2021-03-02 13:02] LABS: Vancomycin, Trough 13.5 ug/mL
[2021-03-02] MEDS: VANCOMYCIN 1.25 GM/250 ML BAG 1.25 GM in Premix Bag 1 BAG IVPB SCH (14:11)
[2021-03-02] MEDS ORDERED: Gentamicin 80 MG/2 ML VIAL ONE (14:51)
[2021-03-02] MEDS ORDERED: CEFAZOLIN 1 GM VIAL ONE (14:51)
[2021-03-02] MEDS ORDERED: Fentanyl 100 MCG/2 ML VIAL ONE (16:03)
[2021-03-02] MEDS ORDERED: Midazolam HCl 2 mg/2 ml Vial ONE (16:03)
[2021-03-02] MEDS ORDERED: Lidocaine 1% PF 5 ML VIAL ONE (16:27)
[2021-03-02] MEDS ORDERED: ePHEDrine Sulfate 50 MG/10 ML VIAL ONE (16:27)
[2021-03-02] MEDS ORDERED: PROPOFOL 200 MG/20 ML VIAL ONE (16:42)
[2021-03-02] MEDS ORDERED: Promethazine HCl 25 MG/ML VIAL SLOW IVP PRN (17:48)
[2021-03-02] MEDS ORDERED: Ondansetron HCl/PF 4 MG/2 ML Vial IVP PRN (17:48)
[2021-03-02] MEDS ORDERED: Promethazine HCl 25 MG/ML VIAL IM PRN (17:48)
[2021-03-02] MEDS ORDERED: Midodrine HCl 5 MG TAB PO SCH (23:45)
[2021-03-03] MEDS: Cefepime 1 GM in Sodium Chloride 0.9% 100 ML IVPB SCH ×2 (00:10→12:44)
[2021-03-03] MEDS: Midodrine HCl 5 MG TAB PO SCH ×2 (08:36→20:52)
[2021-03-03] MEDS: Acetaminophen 325 MG TAB PO PRN ×4 (08:36→20:52)
[2021-03-03] MEDS: Enoxaparin Sodium 40 MG/0.4 ML SYRINGE SC SCH (08:36)
[2021-03-03] MEDS: Famotidine 20 MG TAB PO SCH (08:38)
[2021-03-03] MEDS: VANCOMYCIN 1.25 GM/250 ML BAG 1.25 GM in Premix Bag 1 BAG IVPB SCH (14:00)
[2021-03-04] MEDS: Acetaminophen 325 MG TAB PO PRN ×3 (01:33→20:11)
[2021-03-04] MEDS: Cefepime 1 GM in Sodium Chloride 0.9% 100 ML IVPB SCH ×2 (01:33→11:35)
[2021-03-04] MEDS: Midodrine HCl 5 MG TAB PO SCH ×2 (09:05→20:11)
[2021-03-04] MEDS: Enoxaparin Sodium 40 MG/0.4 ML SYRINGE SC SCH (09:05)
[2021-03-04] MEDS: Famotidine 20 MG TAB PO SCH (09:05)
[2021-03-04 12:14] LABS: Vancomycin, Trough 16.7 ug/mL
[2021-03-04] MEDS: VANCOMYCIN 1.25 GM/250 ML BAG 1.25 GM in Premix Bag 1 BAG IVPB SCH (12:20)
[2021-03-04] MEDS: HYDROcodone/Acetaminophen 5/325 mg Tablet PO PRN (14:25)
[2021-03-05] MEDS: HYDROcodone/Acetaminophen 5/325 mg Tablet PO PRN (00:09)
[2021-03-05] MEDS: Cefepime 1 GM in Sodium Chloride 0.9% 100 ML IVPB SCH ×2 (00:10→11:39)
[2021-03-05] MEDS: Acetaminophen 325 MG TAB PO PRN (06:29)
[2021-03-05] MEDS: Famotidine 20 MG TAB PO SCH (08:59)
[2021-03-05] MEDS: Enoxaparin Sodium 40 MG/0.4 ML SYRINGE SC SCH (08:59)
[2021-03-05] MEDS: Midodrine HCl 5 MG TAB PO SCH (08:59)
[2021-03-05] MEDS: VANCOMYCIN 1.25 GM/250 ML BAG 1.25 GM in Premix Bag 1 BAG IVPB SCH (13:34)
[2021-03-05 16:05] VITALS: BP 105/66; TEMP 97.9
== END 2021-03-05 17:20 | disposition short-term general hospital (02) | DRG 260 ==
LOC: ERS 10:37 → 2NO 13:53
PROVIDERS: ADMIT Family Medicine; ATTEND Internal Medicine
PROC: 0JPT0PZ Removal of Cardiac Rhythm Related Device from Trunk Subcutaneous Tissue and Fascia, Open Approach (ICD-10-PCS; principal; 2021-02-26)
PROC: 02PA3MZ Removal of Cardiac Lead from Heart, Percutaneous Approach (ICD-10-PCS; 2021-02-26)
DX: T82.7XXA Infection and inflammatory reaction due to other cardiac and vascular devices, implants and grafts, initial encounter (principal); A41.9 Sepsis, unspecified organism; I50.22 Chronic systolic (congestive) heart failure; L03.114 Cellulitis of left upper limb; N17.9 Acute kidney failure, unspecified; I42.8 Other cardiomyopathies; L03.313 Cellulitis of chest wall; Z86.73 Personal history of transient ischemic attack (TIA), and cerebral infarction without residual deficits; I11.0 Hypertensive heart disease with heart failure; E78.5 Hyperlipidemia, unspecified; Z79.82 Long term (current) use of aspirin; I44.7 Left bundle-branch block, unspecified; I48.0 Paroxysmal atrial fibrillation; I25.10 Atherosclerotic heart disease of native coronary artery without angina pectoris; Y83.8 Other surgical procedures as the cause of abnormal reaction of the patient, or of later complication, without mention of misadventure at the time of the procedure; I95.9 Hypotension, unspecified
CPT/HCPCS: 33241; 33244; 36415; 36416; 71045; 80048; 80053; 80202; 83605; 85007; 85025; 85027; 86140; 87040; 87070; 87205; 87635; 93306; 94760; 96365; 96366; 96367; J0690; J0692; J1580; J1650; J2250; J2405; J2704; J3010; J3370; J3490; U0003; U0005